=== PATIENT | female | born 1950 | race Caucasian/White ===

== ENCOUNTER → 2018-02-13 09:09 | Outpatient (CLI) | payer MEDICARE, OTHER, SELFPAY | PROVIDERS: Family Provider Family Medicine; PCP Family Medicine; Visit Provider Family Medicine | DX: R69 Illness, unspecified (principal) ==

== ENCOUNTER → 2018-02-20 08:27 | Outpatient (CLI) | payer MEDICARE, OTHER, SELFPAY ==
[2018-02-20 10:20] LABS: ALB/GLOB Ratio 1.2 RATIO (0.9-2.4); AST(SGOT) 80 U/L (15-37); Alanine Aminotransfer ALT/SGPT 97 U/L (13-56); Albumin, Serum 3.8 g/dL (3.2-5.0); Alkaline Phosphatase 88 U/L (45-117); Anion Gap 8 (5-15); BUN 12 mg/dL (7-18); BUN/Creat Ratio 17.1 RATIO (10-20); Calcium,Total 8.9 mg/dL (8.5-10.1); Chloride 106 mmol/L (98-107); Cholesterol 171 mg/dL (200); EST Glomerular Filtration Rate 88 mL/min (>60); Est Glom Filt Rate - Afr Amer 107 mL/min (>60); Globulin 3.1 g/dL (2.2-4.2); Glucose 151 mg/dL (74-106); High Density Lipoprotein 46 mg/dL; Potassium 4.2 mmol/L (3.5-5.1); Protein, Total 6.9 g/dL (6.4-8.2); Sodium Level 142 mmol/L (136-145); Thyroid Stim Hormone (TSH) 2.07 uIU/mL (0.358-3.74); Triglycerides 137 mg/dL; Very Low Density Lipoprotein 27 mg/dL (5-40)
[2018-02-21 09:03] LABS: Vitamin D,25 Hydroxy 61.1 ng/mL (29.95-100.01)
== END ==
PROVIDERS: Family Provider Family Medicine; PCP Family Medicine; Visit Provider Family Medicine
DX: E11.65 Type 2 diabetes mellitus with hyperglycemia (principal); E03.9 Hypothyroidism, unspecified; E55.9 Vitamin D deficiency, unspecified
CPT/HCPCS: 36415; 80053; 80061; 82306; 84443

== ENCOUNTER → 2018-05-21 09:25 | Outpatient (CLI) | payer MEDICARE, OTHER, SELFPAY ==
[2018-05-21 10:54] LABS: ALB/GLOB Ratio 1.1 RATIO (0.9-2.4); AST(SGOT) 55 U/L (15-37); Alanine Aminotransfer ALT/SGPT 71 U/L (13-56); Albumin, Serum 3.7 g/dL (3.2-5.0); Alkaline Phosphatase 75 U/L (45-117); Anion Gap 6 (5-15); BUN 15 mg/dL (7-18); Calcium,Total 9.2 mg/dL (8.5-10.1); Chloride 108 mmol/L (98-107); Creatinine, Serum 0.65 mg/dL (0.55-1.02); EST Glomerular Filtration Rate 96 mL/min (>60); Est Glom Filt Rate - Afr Amer 116 mL/min (>60); Globulin 3.3 g/dL (2.2-4.2); Glucose 115 mg/dL (74-106); Potassium 4.1 mmol/L (3.5-5.1); Sodium Level 140 mmol/L (136-145)
[2018-05-22 14:38] LABS: Hep C Antibodies 0.1 s/co ratio (0.0-0.9)
== END ==
PROVIDERS: Family Provider Family Medicine; PCP Family Medicine; Visit Provider Family Medicine
DX: R74.8 Abnormal levels of other serum enzymes (principal)
CPT/HCPCS: 36415; 80053; 86803

== ENCOUNTER → 2018-11-24 10:09 | Outpatient (CLI) | payer MEDICARE, OTHER, SELFPAY ==
[2018-11-24 13:20] LABS: ALB/GLOB Ratio 1.1 RATIO (0.9-2.4); AST(SGOT) 83 U/L (15-37); Alanine Aminotransfer ALT/SGPT 86 U/L (13-56); Albumin, Serum 3.7 g/dL (3.2-5.0); Alkaline Phosphatase 82 U/L (45-117); Anion Gap 11 (5-15); BUN 15 mg/dL (7-18); BUN/Creat Ratio 21.4 RATIO (10-20); Calcium,Total 8.8 mg/dL (8.5-10.1); Chloride 108 mmol/L (98-107); Cholesterol 181 mg/dL (200); EST Glomerular Filtration Rate 88 mL/min (>60); Est Glom Filt Rate - Afr Amer 107 mL/min (>60); Globulin 3.3 g/dL (2.2-4.2); Glucose 134 mg/dL (74-106); High Density Lipoprotein 45 mg/dL; Potassium 4.2 mmol/L (3.5-5.1); Sodium Level 138 mmol/L (136-145); T4 Free Direct 1.36 ng/dL (0.76-1.46); Thyroid Stim Hormone (TSH) 1.83 uIU/mL (0.358-3.74); Triglycerides 211 mg/dL; Very Low Density Lipoprotein 42 mg/dL (5-40)
== END ==
PROVIDERS: Family Provider Family Medicine; PCP Family Medicine; Visit Provider Family Medicine
DX: E11.65 Type 2 diabetes mellitus with hyperglycemia (principal); E03.9 Hypothyroidism, unspecified
CPT/HCPCS: 36415; 80053; 80061; 84439; 84443

== ENCOUNTER → 2018-11-25 14:54 | Outpatient (CLI) | payer MEDICARE, OTHER, SELFPAY ==
[2018-11-25 17:49] LABS: Vitamin D,25 Hydroxy 18.2 ng/mL (29.95-100.01)
== END ==
PROVIDERS: Family Provider Family Medicine; PCP Family Medicine; Visit Provider Family Medicine
DX: E55.9 Vitamin D deficiency, unspecified (principal)
CPT/HCPCS: 36415; 82306

== ENCOUNTER → 2018-11-26 13:38 | Outpatient (CLI) | payer MEDICARE, OTHER, SELFPAY ==
--- NOTE | 2018-11-26 13:43 | CDU_ITS ---
Reason For Study: RETINAL EMBOLI Rt. Velocities/BP Lt. Velocities/BP Prox CCA 111/17 cm/sec. Prox CCA 124/25 cm/sec. Mid CCA 70/19 cm/sec. Mid CCA 75/24 cm/sec. Dist CCA 80/24 cm/sec. Dist CCA 85/27 cm/sec. Prox ICA 37/13 cm/sec. Prox ICA 68/26 cm/sec. Mid ICA 50/19 cm/sec. Mid ICA 65/28 cm/sec. Dist ICA 59/28 cm/sec. Dist ICA 61/25 cm/sec. Rt. ICA/CCA = .84. Lt. ICA/CCA = .91. Prox ECA 87/16 cm/sec. Prox ECA 106/17 cm/sec. Rt. Vert. 42/13 cm/sec. Lt. Vert. 38/9 cm/sec. Right Extracranial There is homogeneous, smooth atherosclerotic plaque noted in the right common carotid artery. There is homogeneous, smooth atherosclerotic plaque noted in the right internal carotid artery. There is heterogeneous, irregular atherosclerotic plaque noted in the right external carotid artery. Antegrade flow is noted in the right vertebral artery. Left Extracranial There is homogeneous, smooth atherosclerotic plaque noted in the left common carotid artery. There is heterogeneous, smooth atherosclerotic plaque noted in the left internal carotid artery. There is heterogeneous, irregular atherosclerotic plaque noted in the left external carotid artery. Antegrade flow is noted in the left vertebral artery. Procedure Carotid Duplex [id number]. Exam performed in department. Interpretation Summary Mild (<50%) stenosis right extracranial internal carotid. Mild (<50%) stenosis left extracranial internal carotid. Flow within the vertebral arteries is antegrade bilaterally. Ordering Physician: Marques Gore Referring Physician: Marques Gore Performed By: Dinora Mckay, LETITIA, RVT
== END ==
PROVIDERS: Family Provider Family Medicine; PCP Family Medicine; Referring Provider Family Medicine; Visit Provider Family Medicine
DX: H34.9 Unspecified retinal vascular occlusion (principal)
CPT/HCPCS: 93880

== ENCOUNTER → 2018-12-24 12:31 | Outpatient (CLI) | payer MEDICARE, OTHER, SELFPAY ==
--- NOTE | 2018-12-24 12:33 | ECHOD_ITS ---
Reason For Study: Bilateral Retinal Emboli Procedure This was a 2D Doppler, Color Flow transthoracic echocardiogram. Exam performed in department. Left Ventricle Moderate concentric left ventricular hypertrophy. The estimated ejection fraction is 75 %. Stage 1 diastolic dysfunction. No regional wall motion abnormalities noted. Right Ventricle Normal size and thickness. Normal systolic function. Atria The left atrium is moderately enlarged. Normal right atrium. Normal atrial septum. Mitral Valve Mild diffuse mitral valve thickening. Severe mitral annular calcification extending into the posterior leaflet. Tricuspid Valve Normal tricuspid valve. Mild (1+) tricuspid valve insufficiency. Right ventricular systolic pressure estimated to be 32 mmHg. Aortic Valve Trisinus/trileaflet aortic valve. Aortic sclerosis, no stenosis. Pulmonic Valve Normal pulmonic valve. Great Vessels Normal aortic root. Normal arch. Normal inferior vena cava. Inferior vena cava collapse with sniff. MMode/2D Measurements & Calculations LVIDd: 3.5 cm IVSd: 1.5 cm Ao root diam: 3.5 cm LVIDs: 2.0 cm LVPWd: 1.3 cm RVDd: 3.3 cm FS: 44.7 % LAV(MOD-bp): 82.1 ml LA A4 area: 25.2 cm2 RA A4 area: 13.1 cm2 LAV(MOD-bp) Indexed: 43.5 ml/m2 LAV(MOD-sp2): 86.6 ml LAV(MOD-sp4): 78.4 ml Time Measurements MV dec time: 0.37 sec Doppler Measurements & Calculations MV E max kentrell: 97.1 cm/sec Lat Peak E' Kentrell: 3.8 cm/sec Med Peak E' Kentrell: 3.6 cm/sec MV A max kentrell: 126.2 cm/sec E/E' lat: 25.5 E/E' med: 26.9 MV E/A: 0.77 MV V2 max: 140.7 cm/sec MV P1/2t max kentrell: 107.0 cm/sec Ao V2 max: 125.3 cm/sec MV max P.9 mmHg MV P1/2t: 92.5 msec Ao max P.3 mmHg MV V2 mean: 72.5 cm/sec Ao V2 mean: 79.0 cm/sec MV mean P.5 mmHg MV dec slope: 339.0 cm/sec2 Ao mean P.9 mmHg MV V2 VTI: 45.3 cm MVA(P1/2t): 2.4 cm2 Ao V2 VTI: 27.2 cm LV V1 max: 106.2 cm/sec PA V2 max: 72.8 cm/sec TR max kentrell: 249.9 cm/sec LV V1 max P.5 mmHg TR max P.0 mmHg LV V1 mean P.7 mmHg LV V1 mean: 58.4 cm/sec LV V1 VTI: 21.9 cm Interpretation Summary Moderate concentric left ventricular hypertrophy. The estimated ejection fraction is 75 %. Stage 1 diastolic dysfunction. The left atrium is moderately enlarged. Mild (1+) tricuspid valve insufficiency. Right ventricular systolic pressure estimated to be 32 mmHg. No evidence of VSD. There is no comparison study available. Ordering Physician: Marques Gore Referring Physician: Marques Gore Performed By: Maicol Smith RCS
--- NOTE | 2018-12-24 13:35 | CT_ITS ---
STUDY: CTA NECK WITH CONTRAST REASON FOR EXAM: Female, 68 years old. Retinal emboli. RADIATION DOSAGE (If Supplied By Facility): CTDIvol = ( 20.41 ) mGy, DLP = ( 485.39 ) mGycm TECHNIQUE: CT angiography with multi-detector data acquisition was performed from the aortic arch to the skull base following intravenous administration of Isovue 370 100 IV. MIP images were reconstructed from the axial data set. Post-processing of the angiographic images was performed, with multiplanar reformation and 3D reconstruction. Individualized dose optimization techniques were used for this CT. COMPARISON: Ultrasound carotid duplex 11/26/2018. FINDINGS: Apical lungs exhibit mild chronic interstitial changes with no acute process. Superior mediastinal contents unremarkable. Apical thoracic body wall soft tissues and osseous structures exhibit no acute abnormality. Multinodular heterogeneity of the thyroid gland bilaterally, numerous small nodules. Likely goitrous changes. Clinically correlate. No supraclavicular mass or lymphadenopathy. No cervical mass or lymphadenopathy. Pharyngeal and laryngeal soft tissues exhibit no acute process. There is prominent multilevel cervical degenerative disc disease between C3 and C7 most prominent at C5-C7 with uncovertebral joint hypertrophy and facet hypertrophy contributing to multilevel mild to moderate foraminal narrowing. Foraminal narrowing most notable bilaterally at C5-C6, on the left at C6-C7. Prominently comparison thickening and fluid level within the left maxillary sinus. Minimal mucoperiosteal thickening of right sphenoid and posterior ethmoids. Mastoid air cells and middle ear cavities clear. Nondilated aortic arch, widely patent bovine cervical arch branching, no atherosclerosis. Normal subclavian arteries. Right carotid artery minimal plaque of the bulb, no stenosis or dissection. Left carotid artery minimal plaque of the bulb and proximal ICA without stenosis or dissection. Bilateral cervical and intracranial vertebral arteries normal. Normal appearance of the basilar artery and posterior cerebral arteries. Normal appearance of the pauma of Alvarez. Normal enhancement of the bilateral ophthalmic arteries. Normal appearance of the evaluated portions of the middle and anterior cerebral arteries. Normal appearance of the evaluated portions of the dural venous sinuses and major venous tributaries. CT/CTA Neck W/WO Contrast IMPRESSION: There is no evidence of retinal artery occlusion. Each enhances normally. Minimal atherosclerosis of the carotid bulbs and bifurcations without stenosis or dissection. Paranasal sinus disease. Multilevel cervical spondylosis. Heterogeneous multinodular thyroid gland likely reflecting goiter. Clinically correlate. Electronically Signed: Félix Bray MD at 15:57 EDT Tel , Service support ,
== END ==
PROVIDERS: Family Provider Family Medicine; PCP Family Medicine; Referring Provider Family Medicine; Visit Provider Family Medicine
DX: Z86.73 Personal history of transient ischemic attack (TIA), and cerebral infarction without residual deficits (principal); H34.9 Unspecified retinal vascular occlusion
CPT/HCPCS: 70498; 93306; Q9967

== ENCOUNTER → 2019-02-26 08:34 | Outpatient (CLI) | payer MEDICARE, OTHER, SELFPAY ==
[2019-02-26 10:20] LABS: ALB/GLOB Ratio 1.1 RATIO (0.9-2.4); AST(SGOT) 62 U/L (15-37); Alanine Aminotransfer ALT/SGPT 78 U/L (13-56); Albumin, Serum 3.9 g/dL (3.2-5.0); Alkaline Phosphatase 92 U/L (45-117); Anion Gap 7 (5-15); BUN 17 mg/dL (7-18); BUN/Creat Ratio 21.2 RATIO (10-20); Calcium,Total 9.2 mg/dL (8.5-10.1); Chloride 105 mmol/L (98-107); EST Glomerular Filtration Rate 76 mL/min (>60); Est Glom Filt Rate - Afr Amer 91 mL/min (>60); Globulin 3.5 g/dL (2.2-4.2); Glucose 124 mg/dL (74-106); Potassium 4.2 mmol/L (3.5-5.1); Protein, Total 7.4 g/dL (6.4-8.2); Sodium Level 139 mmol/L (136-145); Vitamin D,25 Hydroxy 50.8 ng/mL (29.95-100.01)
== END ==
PROVIDERS: Family Provider Family Medicine; PCP Family Medicine; Referring Provider Family Medicine; Visit Provider Family Medicine
DX: E55.9 Vitamin D deficiency, unspecified (principal); R74.8 Abnormal levels of other serum enzymes
CPT/HCPCS: 36415; 80053; 82306

== ENCOUNTER → 2019-11-16 08:32 | Outpatient (CLI) | payer MEDICARE, OTHER, SELFPAY ==
[2019-11-16 10:43] LABS: ALB/GLOB Ratio 1.1 RATIO (0.9-2.4); AST(SGOT) 85 U/L (15-37); Alanine Aminotransfer ALT/SGPT 101 U/L (13-56); Albumin, Serum 3.8 g/dL (3.2-5.0); Alkaline Phosphatase 91 U/L (45-117); Anion Gap 4 (5-15); BUN 13 mg/dL (7-18); BUN/Creat Ratio 18.5 RATIO (10-20); Calcium,Total 9.1 mg/dL (8.5-10.1); Chloride 105 mmol/L (98-107); EST Glomerular Filtration Rate 88 mL/min (>60); Est Glom Filt Rate - Afr Amer 107 mL/min (>60); Globulin 3.4 g/dL (2.2-4.2); Glucose 166 mg/dL (74-106); Potassium 4.1 mmol/L (3.5-5.1); Protein, Total 7.2 g/dL (6.4-8.2); Sodium Level 138 mmol/L (136-145); Thyroid Stim Hormone (TSH) 2.49 uIU/mL (0.358-3.74)
== END ==
PROVIDERS: PCP Family Medicine; Referring Provider Family Medicine; Visit Provider Family Medicine
DX: E03.9 Hypothyroidism, unspecified (principal); E55.9 Vitamin D deficiency, unspecified; E11.65 Type 2 diabetes mellitus with hyperglycemia
CPT/HCPCS: 36415; 80053; 82306; 84443

== ENCOUNTER → 2019-11-25 07:37 | Outpatient (CLI) | payer MEDICARE, OTHER, SELFPAY ==
--- NOTE | 2019-11-25 07:40 | US_ITS ---
STUDY: ABDOMINAL ULTRASOUND REASON FOR EXAM: Female, 69 years old. ELEVATED LIVER ENZYMES -- HX OF CHOLECYSTECTOMY 30 YEARS AGO TECHNIQUE: Transabdominal ultrasound was performed with real-time and static de la paz scale imaging. TECHNICAL QUALITY: Adequate. COMPARISON: None. FINDINGS: Liver: The liver is slightly enlarged and measures 18.1 cm. There is increased echogenicity consistent with fatty infiltration. The bile ducts are within normal limits. There is hepatic color flow. The direction of portal flow is hepatopetal. There is no demonstrated mass lesion. Portal vein measurement: Gallbladder: The patient is status post cholecystectomy. Common Bile Duct (C.B.D.): The common bile duct measures 7.4 mm. Pancreas: Normal size of the head, body and tail of the pancreas. There is increased echogenicity of the pancreas. There is no demonstrated pancreatic mass or cyst. Spleen: There is splenomegaly. The spleen measures 14 cm x 4.8 cm x 5.1 cm. Right Kidney: Normal size of the right kidney. The right kidney measures 11.7 cm x 6.1 cm x 5.5 cm. Normal renal cortex. The right cortex measures 1.1 cm. There is no demonstrated renal mass or cyst. There is no right hydronephrosis. Left Kidney: Normal size of the left kidney. The left kidney measures 11.7 cm x 5.7 cm x 5.8 cm. Normal renal cortex. The left cortex measures 1.5 cm. There is no demonstrated renal mass or cyst. There is no left hydronephrosis. Aorta: Unremarkable I.V.C.: The IVC is patent. There is no ascites. US/Abdomen Complete IMPRESSION: Mild hepatomegaly with diffuse fatty infiltration. Splenomegaly. The patient is status post cholecystectomy. Electronically Signed: Wes Jeffrey, at 14:02 EST , Service support ,
== END ==
PROVIDERS: PCP Family Medicine; Referring Provider Family Medicine; Visit Provider Family Medicine
DX: R94.5 Abnormal results of liver function studies (principal)
CPT/HCPCS: 76700

== ENCOUNTER → 2019-11-27 08:01 | Outpatient (CLI) | payer MEDICARE, OTHER, SELFPAY ==
[2019-11-27 10:20] LABS: Mean Corpuscular Hgb 31.7 pg (27.0-32.0); Mean Corpuscular Volume 93.3 fL (81-99); Mean Platelet Vol. 13.5 fl (6.2-12.0); Platelet Count 121 K/mm3 (150-450); RBC Distribution Width CV 12.5 % (11.6-14.6); RBC Distribution Width SD 42.5 fl (35.1-43.9); Red Blood Count 5.04 M/mm3 (4.2-5.4); White Blood Count 6.9 K/mm3 (4.4-11.0)
[2019-11-27 10:43] LABS: Cholesterol 209 mg/dL (200); Ferritin 351 ng/mL (8-252); GGTP 241 U/L (5-55); High Density Lipoprotein 50 mg/dL; Iron 153 ug/dL (50-170); Triglycerides 241 mg/dL; Very Low Density Lipoprotein 48 mg/dL (5-40)
[2019-11-27 11:01] LABS: Hepatitis B Surface Antibody Non-Reactive; Hepatitis B Surface Antigen Non-Reactive (Nonreactive)
[2019-11-30 14:56] LABS: Iron Binding Capacity,Total 305 ug/dL (250-450)
[2019-12-01 09:43] LABS: Vitamin D,25 Hydroxy 69.2 ng/mL
[2019-12-03 11:05] LABS: Transferrin 235 mg/dL (200-370)
== END ==
PROVIDERS: PCP Family Medicine; Referring Provider Family Medicine; Visit Provider Family Medicine
DX: E55.9 Vitamin D deficiency, unspecified (principal); E11.65 Type 2 diabetes mellitus with hyperglycemia; R94.5 Abnormal results of liver function studies; E61.1 Iron deficiency
CPT/HCPCS: 36415; 80061; 81291; 82306; 82728; 82977; 83540; 83550; 84466; 85027; 86706; 87340

== ENCOUNTER 2020-03-15 05:19 | Day surgery (SDC) | payer MEDICARE, OTHER, SELFPAY ==
[2020-03-03 07:37] VITALS: BMI 33.8
--- NOTE | 2020-03-03 07:55 | HP_ITS ---
Intake Vital Signs 03/03/20 Height 5 ft 2 in 03/03/20 Weight: 185 lb 03/03/20 BP 124/80 H 03/03/20 Blood Pressure Location Rt brachial 03/03/20 Position Sitting 03/03/20 Respiration 16 03/03/20 Pulse 67 03/03/20 Pulse Source Monitor 03/03/20 Temp 98.0 F 03/03/20 Temp Source Temporal 03/03/20 Pulse Oximetry (%) 95 03/03/20 Oxygen Delivery Method room air Intake Visit Reasons: C-Scope/Rectal Bleeding Supervisor Mail Carriers Required: No Is patient in pain?: No Allergies atorvastatin Allergy (Unknown, Verified 03/03/20 07:38) Unknown Sulfa (Sulfonamide Antibiotics) Allergy (Unknown, Verified 03/03/20 07:38) Unknown Medications aspirin 81 mg tablet,delayed release 81 mg PO DAILY 03/03/20 [History Confirmed 03/03/20] canagliflozin 300 mg tablet 300 mg PO DAILY tab 03/03/20 [History Confirmed 03/03/20] cholecalciferol (vitamin D3) 1,250 mcg (50,000 unit) capsule 50,000 unit PO QWEEK cap 03/03/20 [History Confirmed 03/03/20] glimepiride 4 mg tablet 4 mg PO DAILY tab 03/03/20 [History Confirmed 03/03/20] levothyroxine 100 mcg tablet 100 mcg PO DAILY tab 03/03/20 [History Confirmed 03/03/20] metformin 1,000 mg tablet 1,000 mg PO BID tab 03/03/20 [History Confirmed 03/03/20] [facility] Medical History (Updated 03/03/20 @ 07:[address] Shahab Velazquez MD) Anal stenosis (Acute) Rectal bleeding (Acute) Arthritis (Acute) Blood in stool (Acute) Diabetes (Acute) Diarrhea (Acute) Hemorrhoids (Acute) Suspected sleep apnea (Acute) Thyroid disease (Acute) Surgical History (Updated 03/03/20 @ 07:32 by Linda Schmitt) Hx of colonoscopy (Acute) Hx of cholecystectomy (Acute) Family History (Updated 03/03/20 @ 07:36 by Linda Schmitt) Mother Arthritis Heart disease Diabetes Hypertension High cholesterol Thyroid disorder Father Bone cancer Diabetes Hypertension High cholesterol Cancer skin cancer Sister Thyroid disorder Daughter Lupus Social History (Updated 03/03/20 @ 07:[address] Shahab Velazquez MD) Smoking Status: Former smoker alcohol intake: never substance use type: does not use caffeine: Yes what type of physical activity do you participate in: walking frequency: 3-4 times per week seatbelt use: always HPI HPI HPI: CESAR SHELTON, is a 69 F who presents to the office today for HPI HPI Surgical H&P: Yes HPI: CESAR SHELTON, is a 69 F who presents to the office today for surgical consultation regarding rectal bleeding. The patient is referred by her primary Dr. Marques Gore and Written Copy My Surgical Consult Recommendations Will Return to Him. Over a 1 Week Period of Time the Patient Had Intermittent Rectal Bleeding. Blood on the Tissue and in the Stool. She Has Some Local Irritation. The Symptoms Seem Similar to November 2009 Where I Did a Colonoscopy for Her. She Had Anal Stenosis Identified at That Time Internal and External Hemorrhoids. She Apparently Has Been Otherwise Well in That Time Period. She States That Her Father Had a History of Colon Polyps. She Is Not Recognizing Any Family History of Colon Cancer. Now on Routine Laboratory Obtained November 17, 2019 Her Hemoglobin Level Was Elevated at 16 Hematocrit of 47 and a Platelet Count Low at 121,000. 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 Cholesterol Is 209 and Triglyceride 241. GGTP Was 241. Iron Was 153. Hepatitis B Surface Antigen Negative. Hepatitis B Surface Antibody Negative. TIBC 305. Transferrin Was 235. 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 Ferritin Was 351 Abnormally High. On November 25, 2019 at the [facility] a Ultrasound Was Obtained of the Abdomen and It Was Abnormal. The Liver Was Slightly Enlarged Measuring 18.1 Cm with Increased Echogenicity Consistent with Fatty Infiltration. The Spleen Was Enlarged Measuring 14 x 4.8 x 5.1 Cm. Evidence of Previous Cholecystectomy. The Patient States That She Has Additional Follow-Up Scheduled with Dr. Marques Durán. The Patient States That She Has Had Some Vaginal Irritation Which She Tried Vinegar Irrigation. That Has Improved but Not Resolve the Issue. ROS General General: No weight change, appetite, fatigue, colon cancer, breast cancer or weakness HEENT HEENT: No difficulty swallowing, eye injury, eye surgery, swollen glands or hoarseness Endo Endocrine: Yes thyroid disease and diabetes mellitus; no thyroid cancer, Hair loss, heat intolerance or cold intolerance Skin Skin: No rash or changing moles Musc Musculoskeletal: Yes arthritis; no back problems, rheumatoid arthritis, gout or joint pain Cardio Cardiovascular: No murmur, pacemaker, heart disease, atrial fibrillation, high blood pressure, heart attack, heart stent, palpitations, shortness of breat with exertion or chest pain Psych Psychiatric: No depression, anxiety or hearing voices Resp Respiratory: No shortness of breath, Yes sleep apnea, No cough, No COPD, No asthma, No emphysema, No wheezing Gastro Gastrointestinal: No abdominal pain, No nausea or vomiting, Yes diarrhea, No constipation, Yes blood in stool, No acid reflux, No hemorrhoids, No ulcers, No gallbladder problem, No black,tarry stools Addy Hematologic: Yes blood thinners, No blood disorders, No bleeding, No anemia, No blood clots Neuro Neurologic: No system reviewed and no additional complaints, except as docu, No as per HPI, No abnormal walking, No abnormal hearing, No abnormal movements, No abnormal speech, No behavioral changes, No burning sensations, No confusion, No seizure-like activity, No unsteadiness, No dizziness, No localized weakness, No frequent falls, No headache(s), No lack of coordination, No loss of vision, No memory loss, No numbness, No other visual disturbances, No radiating pain, No restless legs, No sensory deficit, No fainting, No tingling, No tremor(s), No weakness, No other Exam Const General: cooperative, healthy appearing, comfortable, no acute distress Nutritional Appearance: obese Orientation: alert, awake, oriented x3 HENMT Head: normal to inspection Resp Effort & Inspection: normal respiratory effort Auscultation: clear to auscultation bilaterally Cardio Rate: regular rate Rhythm: regular rhythm Heart Sounds: no murmurs Other: Carotids are 3+ bilateral no bruits. Bilateral radials and brachials are 3+ GI Palpation: soft, no hepatosplenomegaly Auscultation: normal bowel sounds Musc Cervical Spine: normal cervical lordosis Neuro Cognition: normal cognition Extrem General: no calf tenderness Psych Affect: normal affect Assessment & Plan Problems 1. Rectal bleeding K62.5 2. Anal stenosis K62.4 Plan Regarding the patient's concern of anal irritation and anal bleeding I do recommend a colonoscopy with possible biopsy or polypectomy as indicated. I have explained the technique, benefit, risk and alternatives. She has had an opportunity to ask and have questions answered. She is aware that this is occurring during the time of the Covid-19 pandemic. She is aware that the [facility] suggest a low local incidence. She is aware of the increased risk. Regarding the patient's abnormal hemoglobin and platelet count and liver and spleen imaging. She will continue to follow-up with Dr. Marques Gore. She has had an opportunity to ask and have questions answered. I very much appreciate the ongoing opportunity of assisting with surgical care. We will schedule and proceed at her discretion. CC: Dr. Marques Velazquez M.D., F.A.C.S. Coding Level of Care Code 01325 Diagnoses Rectal bleeding K62.5 Anal stenosis K62.4 03/03/20 0755 <Electronically signed by Shahab hartley MD> Date _ Shahab Velazquez MD
[2020-03-15 05:39] VITALS: BP 118/64; PULSE 73; RESP 16; TEMP 37.2; O2SAT 96; BMI 34.7
--- NOTE | 2020-03-15 05:56 | HP.PCM_ITS ---
Problem List (1) Rectal bleeding Status: Acute History and Physical Date of Admission: 03/15/20 Intake Visit Reasons: C-Scope/Rectal Bleeding Yarn Conditioner Required: No Is patient in pain?: No Allergies atorvastatin Allergy (Unknown, Verified 03/03/20 07:38) Unknown Sulfa (Sulfonamide Antibiotics) Allergy (Unknown, Verified 03/03/20 07:38) Unknown Medications aspirin 81 mg tablet,delayed release 81 mg PO DAILY 03/03/20 [History Confirmed 03/03/20] canagliflozin 300 mg tablet 300 mg PO DAILY tab 03/03/20 [History Confirmed 03/03/20] cholecalciferol (vitamin D3) 1,250 mcg (50,000 unit) capsule 50,000 unit PO QWEEK cap 03/03/20 [History Confirmed 03/03/20] glimepiride 4 mg tablet 4 mg PO DAILY tab 03/03/20 [History Confirmed 03/03/20] levothyroxine 100 mcg tablet 100 mcg PO DAILY tab 03/03/20 [History Confirmed 03/03/20] metformin 1,000 mg tablet 1,000 mg PO BID tab 03/03/20 [History Confirmed 03/03/20] PFS Medical History (Updated 03/03/20 @ 07:[address] Shahab Velazquez MD) Anal stenosis (Acute) Rectal bleeding (Acute) Arthritis (Acute) Blood in stool (Acute) Diabetes (Acute) Diarrhea (Acute) Hemorrhoids (Acute) Suspected sleep apnea (Acute) Thyroid disease (Acute) Surgical History (Updated 03/03/20 @ 07:32 by Linda Schmitt) Hx of colonoscopy (Acute) Hx of cholecystectomy (Acute) Family History (Updated 03/03/20 @ 07:36 by Linda Schmitt) Mother Arthritis Heart disease Diabetes Hypertension High cholesterol Thyroid disorder Father Bone cancer Diabetes Hypertension High cholesterol Cancer skin cancer Sister Thyroid disorder Daughter Lupus Social History (Updated 03/03/20 @ 07:[address] Shahab Velazquez MD) Smoking Status: Former smoker alcohol intake: never substance use type: does not use caffeine: Yes what type of physical activity do you participate in: walking frequency: 3-4 times per week seatbelt use: always HPI HPI HPI: CESAR SHELTON, is a 69 F who presents to the office today for HPI HPI Surgical H&P: Yes HPI: CESAR SHELTON, is a 69 F who presents to the office today for surgical consultation regarding rectal bleeding. The patient is referred by her primary Dr. Marques Gore and Written Copy My Surgical Consult Recommendations Will Return to Him. Over a 1 Week Period of Time the Patient Had Intermittent Rectal Bleeding. Blood on the Tissue and in the Stool. She Has Some Local Irritation. The Symptoms Seem Similar to November 2009 Where I Did a Colonoscopy for Her. She Had Anal Stenosis Identified at That Time Internal and External Hemorrhoids. She Apparently Has Been Otherwise Well in That Time Period. She States That Her Father Had a History of Colon Polyps. She Is Not Recognizing Any Family History of Colon Cancer. Now on Routine Laboratory Obtained November 17, 2019 Her Hemoglobin Level Was Elevated at 16 Hematocrit of 47 and a Platelet Count Low at 121,000. 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 Cholesterol Is 209 and Triglyceride 241. GGTP Was 241. Iron Was 153. Hepatitis B Surface Antigen Negative. Hepatitis B Surface Antibody Negative. TIBC 305. Transferrin Was 235. 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 Ferritin Was 351 Abnormally High. On November 25, 2019 at the [facility] a Ultrasound Was Obtained of the Abdomen and It Was Abnormal. The Liver Was Slightly Enlarged Measuring 18.1 Cm with Increased Echogenicity Consistent with Fatty Infiltration. The Spleen Was Enlarged Measuring 14 x 4.8 x 5.1 Cm. Evidence of Previous Cholecystectomy. The Patient States That She Has Additional Follow-Up Scheduled with Dr. Marques Durán. The Patient States That She Has Had Some Vaginal Irritation Which She Tried Vinegar Irrigation. That Has Improved but Not Resolve the Issue. ROS General General: No weight change, appetite, fatigue, colon cancer, breast cancer or weakness HEENT HEENT: No difficulty swallowing, eye injury, eye surgery, swollen glands or hoarseness Endo Endocrine: Yes thyroid disease and diabetes mellitus; no thyroid cancer, Hair loss, heat intolerance or cold intolerance Skin Skin: No rash or changing moles Musc Musculoskeletal: Yes arthritis; no back problems, rheumatoid arthritis, gout or joint pain Cardio Cardiovascular: No murmur, pacemaker, heart disease, atrial fibrillation, high blood pressure, heart attack, heart stent, palpitations, shortness of breat with exertion or chest pain Psych Psychiatric: No depression, anxiety or hearing voices Resp Respiratory: No shortness of breath, Yes sleep apnea, No cough, No COPD, No asthma, No emphysema, No wheezing Gastro Gastrointestinal: No abdominal pain, No nausea or vomiting, Yes diarrhea, No co nstipation, Yes blood in stool, No acid reflux, No hemorrhoids, No ulcers, No gallbladder problem, No black,tarry stools Addy Hematologic: Yes blood thinners, No blood disorders, No bleeding, No anemia, No blood clots Neuro Neurologic: No system reviewed and no additional complaints, except as docu, No as per HPI, No abnormal walking, No abnormal hearing, No abnormal movements, No abnormal speech, No behavioral changes, No burning sensations, No confusion, No seizure-like activity, No unsteadiness, No dizziness, No localized weakness, No frequent falls, No headache(s), No lack of coordination, No loss of vision, No memory loss, No numbness, No other visual disturbances, No radiating pain, No restless legs, No sensory deficit, No fainting, No tingling, No tremor(s), No weakness, No other Exam Const General: cooperative, healthy appearing, comfortable, no acute distress Nutritional Appearance: obese Orientation: alert, awake, oriented x3 HENMT Head: normal to inspection Resp Effort & Inspection: normal respiratory effort Auscultation: clear to auscultation bilaterally Cardio Rate: regular rate Rhythm: regular rhythm Heart Sounds: no murmurs Other: Carotids are 3+ bilateral no bruits. Bilateral radials and brachials are 3+ GI Palpation: soft, no hepatosplenomegaly Auscultation: normal bowel sounds Musc Cervical Spine: normal cervical lordosis Neuro Cognition: normal cognition Extrem General: no calf tenderness Psych Affect: normal affect Assessment & Plan Problems 1. Rectal bleeding K62.5 2. Anal stenosis K62.4 Plan Regarding the patient's concern of anal irritation and anal bleeding I do recommend a colonoscopy with possible biopsy or polypectomy as indicated. I have explained the technique, benefit, risk and alternatives. She has had an opportunity to ask and have questions answered. She is aware that this is occurring during the time of the Covid-19 pandemic. She is aware that the [facility] suggest a low local incidence. She is aware of the increased risk. Regarding the patient's abnormal hemoglobin and platelet count and liver and spleen imaging. She will continue to follow-up with Dr. Marques Gore. She has had an opportunity to ask and have questions answered. I very much appreciate the ongoing opportunity of assisting with surgical care. We will schedule and proceed at her discretion. CC: Dr. Marques Velazquez M.D., F.A.C.S. Coding Level of Care Code 56444 Diagnoses Rectal bleeding K62.5 Anal stenosis K62.4 03/03/20 0755 <Electronically signed by Shahab hartley MD> Date _ Shahab Velazquez MD I have re-examined the patient. There are no clinical changes since date of e xam. Procedure Criteria Procedure Type: Elective COVID Risk Discussion: The surgeon/proceduralist and patient have discussed in detail the risk of exposure to and/or potential harm posed by the COVID-19 virus with having a surgery/procedure at this time versus the risk of delaying the surgery/procedure. It is not possible to know either the risk of delaying the surgery or procedure or chance of getting an infection with perfect accuracy, but a joint decision was made between the patient and the surgeon/proceduralist to proceed at this time with the scheduled surgery/procedure as indicated on the consent form.
[2020-03-15] MEDS: Lactated Ringers 1,000 ML 75 ML IV (06:03)
[2020-03-15 06:55] VITALS: BP 104/63; BP 118/64; PULSE 66; RESP 18; TEMP 36.3; O2SAT 97
--- NOTE | 2020-03-15 06:58 | OP.COLON_ITS ---
Patient Name: Erna Driscoll Procedure Date: 03/15/2020 5:44 AM Date of : 1950 Age: 69 Procedure: Colonoscopy Indications: Rectal bleeding Providers: Shahab Velazquez MD Medicines: See the Anesthesia note for documentation of the administered medications Patient Profile: Last Colonoscopy: November 2009. Complications: No immediate complications. Procedure: Pre-Anesthesia Assessment: - Prior to the procedure, a History and Physical was performed, and patient medications and allergies were reviewed. The patient's tolerance of previous anesthesia was also reviewed. The risks and benefits of the procedure and the sedation options and risks were discussed with the patient. All questions were answered, and informed consent was obtained. Prior Anticoagulants: The patient has taken no previous anticoagulant or antiplatelet agents. ASA Grade Assessment: II - A patient with mild systemic disease. After reviewing the risks and benefits, the patient was deemed in satisfactory condition to undergo the procedure. After I obtained informed consent, the scope was passed under direct vision. Throughout the procedure, the patient's blood pressure, pulse, and oxygen saturations were monitored continuously. The colonoscope was introduced through the anus and advanced to the cecum, identified by appendiceal orifice and ileocecal valve. The colonoscopy was performed without difficulty. The patient tolerated the procedure well. The quality of the bowel preparation was adequate to identify polyps. The ileocecal valve and the appendiceal orifice were photographed. Scope In: 6:31:14 AM Scope Withdrawal Time 0 hours 9 minutes 56 seconds Scope Out: 6:49:25 AM Total Procedure Duration Time 0 hours 18 minutes 11 seconds Findings: The digital rectal exam findings include anal stricture, non-thrombosed external hemorrhoids, non-thrombosed internal hemorrhoids and internal hemorrhoids that prolapse with straining, but spontaneously regress to the resting position (Grade II). The colon (entire examined portion) was moderately tortuous. Advancing the scope required using manual pressure. Scattered diverticula were found in the sigmoid colon. Impression: - Anal stricture, non-thrombosed external hemorrhoids, non-thrombosed internal hemorrhoids and internal hemorrhoids that prolapse with straining, but spontaneously regress to the resting position (Grade II) found on digital rectal exam. - Tortuous colon. - Diverticulosis in the sigmoid colon. - No specimens collected. Internal hemorrhoids demonstrated oozing with manipulation//anal stenosis noted allowing just digital examination Recommendation: - Discharge patient to home. - Resume previous diet. - Continue present medications. - Repeat colonoscopy is not recommended due to current age (66 years or older) for screening purposes. If bleeding persists, consider colorectal referral b/o anal stenosis Procedure Code(s): --- Professional --- 13072, Colonoscopy, flexible; diagnostic, including collection of specimen(s) by brushing or washing, when performed (separate procedure) Diagnosis Code(s): --- Professional --- K62.4, Stenosis of anus and rectum K64.1, Second degree hemorrhoids K64.4, Residual hemorrhoidal skin tags K62.5, Hemorrhage of anus and rectum K57.30, Diverticulosis of large intestine without perforation or abscess without bleeding Q43.8, Other specified congenital malformations of intestine CPT copyright 2017 [employer]. All rights reserved. The codes documented in this report are preliminary and upon clinical coder review may be revised to meet current compliance requirements. Shahab Velazquez MD 03/15/2020 6:58:09 AM This report has been signed electronically. Number of Addenda: 0 Note Initiated On: 03/15/2020 5:44 AM
--- NOTE | 2020-03-15 06:58 | OP.CCLET_ITS ---
03/15/2020 Maikel Gore [address] [place] [address] Re : Colonoscopy procedure for Erna Americo Dear Dr. Gore This procedure was performed on Sunday, March 15, 2020. My impressions and recommendations are as follows: Impressions : - Anal stricture, non-thrombosed external hemorrhoids, non-thrombosed internal hemorrhoids and internal hemorrhoids that prolapse with straining, but spontaneously regress to the resting position (Grade II) found on digital rectal exam. - Tortuous colon. - Diverticulosis in the sigmoid colon. - No specimens collected. Internal hemorrhoids demonstrated oozing with manipulation//anal stenosis noted allowing just digital examination Recommendations : - Discharge patient to home. - Resume previous diet. - Continue present medications. - Repeat colonoscopy is not recommended due to current age (66 years or older) for screening purposes. If bleeding persists, consider colorectal referral b/o anal stenosis My findings are described in the full procedure note, which is enclosed. If I can be of further assistance, please feel free to contact me at Doctor phone number(s): Work: . Sincerely, Shahab Velazquez MD 03/15/2020 6:58:09 AM This report has been signed electronically.
[2020-03-15 07:00] VITALS: BP 113/68; BP 118/64; PULSE 65; RESP 18; O2SAT 97
[2020-03-15 07:05] VITALS: BP 114/69; BP 118/64; PULSE 64; RESP 18; O2SAT 96
[2020-03-15 07:10] VITALS: BP 116/68; BP 118/64; PULSE 64; RESP 18; TEMP 36.2; O2SAT 96
[2020-03-15 07:21] VITALS: BP 118/64
== END 2020-03-15 07:36 | disposition home or self-care (01) ==
LOC: EN 05:21 → AC 05:21
PROVIDERS: Physician Assistant; PCP Family Medicine; Referring Provider Family Medicine; Visit Provider Surgery
PROC: 0DJD8ZZ Inspection of Lower Intestinal Tract, Via Natural or Artificial Opening Endoscopic (ICD-10-PCS; CPT 45378; principal; 2020-03-15 06:25)
DX: K62.5 Hemorrhage of anus and rectum (principal); K62.4 Stenosis of anus and rectum; K64.1 Second degree hemorrhoids; K64.4 Residual hemorrhoidal skin tags; K57.30 Diverticulosis of large intestine without perforation or abscess without bleeding; Q43.8 Other specified congenital malformations of intestine; E06.9 Thyroiditis, unspecified; E11.9 Type 2 diabetes mellitus without complications; Z79.82 Long term (current) use of aspirin; Z79.84 Long term (current) use of oral hypoglycemic drugs; Z87.891 Personal history of nicotine dependence; Z11.59 Encounter for screening for other viral diseases
CPT/HCPCS: G0121; 87635; G2023; J7120; J2405; U0003

== ENCOUNTER → 2020-05-19 08:53 | Outpatient (CLI) | payer MEDICARE, OTHER, SELFPAY ==
[2020-05-19 10:38] LABS: ALB/GLOB Ratio 1.3 RATIO (0.9-2.4); AST(SGOT) 71 U/L (15-37); Alanine Aminotransfer ALT/SGPT 76 U/L (13-56); Albumin, Serum 3.7 g/dL (3.2-5.0); Alkaline Phosphatase 86 U/L (45-117); Anion Gap 5 (5-15); BUN 16 mg/dL (7-18); BUN/Creat Ratio 23.6 RATIO (10-20); Chloride 107 mmol/L (98-107); Cholesterol 193 mg/dL (200); Creatinine, Serum 0.68 mg/dL (0.55-1.02); EST Glomerular Filtration Rate 91 mL/min (>60); Est Glom Filt Rate - Afr Amer 110 mL/min (>60); Globulin 2.9 g/dL (2.2-4.2); Glucose 134 mg/dL (74-106); High Density Lipoprotein 44 mg/dL; Potassium 4.4 mmol/L (3.5-5.1); Protein, Total 6.6 g/dL (6.4-8.2); Sodium Level 139 mmol/L (136-145); Thyroid Stim Hormone (TSH) 2.49 uIU/mL (0.358-3.74); Triglycerides 268 mg/dL; Very Low Density Lipoprotein 54 mg/dL (5-40)
== END ==
PROVIDERS: PCP Family Medicine; Referring Provider Family Medicine; Visit Provider Family Medicine
DX: E11.65 Type 2 diabetes mellitus with hyperglycemia (principal); E03.9 Hypothyroidism, unspecified
CPT/HCPCS: 36415; 80053; 80061; 84443

== ENCOUNTER → 2020-05-26 11:02 | Outpatient (CLI) | payer MEDICARE, OTHER, SELFPAY ==
--- NOTE | 2020-05-26 11:06 | ART_ITS ---
Reason For Study: leg pain, I73.89 Procedure A bilateral lower extremity continuous wave Doppler with analog waveform analysis and ankle brachial indexes. Left Segmental Pressures Left brachial= 142mmHg. Left posterior tibial artery = 161mmHg. Left dorsalis pedis artery = 158mmHg. Left digit = 137 mmHg. The left dorsalis pedis waveforms are triphasic. The left posterior tibial artery waveforms are triphasic. Right Segmental Pressures Right brachial= 136mmHg. Right posterior tibial artery = 162mmHg. Right dorsalis pedis artery = 163mmHg. Right digit = 138 mmHg. The right dorsalis pedis waveforms are triphasic. The right posterior tibial artery waveforms are triphasic. Indices The right ankle brachial index by the dorsalis pedis is 1.15. The right ankle brachial index by the posterior tibial artery is 1.14. The right digital-brachial index is .97. The right ankle brachial index by the dorsalis pedis post exercise is 1.24. The left ankle brachial index by the posterior tibial artery is 1.13. The left ankle brachial index by the dorsalis pedis is 1.11. The left digital-brachial index is .96. The left posterior tibial artery index post exercise is 1.19. Interpretation Summary Triphasic Doppler waveforms are noted at ankle level bilaterally. Pulse-volume recordings appear satisfactory at ankle and digital levels bilaterally. Resting ankle-brachial indices are normal bilaterally. Digital-brachial indices are normal bilaterally. The patient was ambulated for 3 minutes at a moderate pace, following which ankle pressures augmented bilaterally, which is a normal physiological response. There is no evidence of significant arterial occlusive disease in the lower extremities bilaterally. Ordering Physician: Maikel Gore Performed By: MARU MOSELEY RVT
== END ==
PROVIDERS: PCP Family Medicine; Referring Provider Family Medicine; Visit Provider Family Medicine
DX: I73.89 Other specified peripheral vascular diseases (principal); M79.606 Pain in leg, unspecified
CPT/HCPCS: 93922

== ENCOUNTER → 2020-07-21 14:55 | Outpatient (CLI) | payer MEDICARE, OTHER, SELFPAY ==
[2020-07-21 17:40] LABS: Absolute Neutrophil Count 5.9 X10^3/uL (2.0-7.7); Basophil# 0.06 X10^3/uL; Basophil% 0.6 % (0-1); Eosinophil# 0.22 X10^3/uL; Eosinophils% 2.3 % (0-5); Hemoglobin 15.4 g/dL (12.0-15.0); Lymphocyte % 27.7 % (19-41); Mean Corp Hgb Conc 33.5 g/dL (32-36); Mean Corpuscular Hgb 31.2 pg (27.0-32.0); Mean Corpuscular Volume 93.3 fL (81-99); Mean Platelet Vol. 12.6 fl (6.2-12.0); Monocyte# 0.85 X10^3/uL; Monocyte% 8.7 % (0-10); NRBC Flagged by Analyzer 0 % (0-5); Neutrophil # 5.88 X10^3/uL (2.7-7.7); Neutrophil % 60.3 % (47-70); Platelet Count 157 K/mm3 (150-450); RBC Distribution Width CV 12.2 % (11.6-14.6); RBC Distribution Width SD 42.2 fl (35.1-43.9); Red Blood Count 4.93 M/mm3 (4.2-5.4); White Blood Count 9.8 K/mm3 (4.4-11.0)
[2020-07-21 17:45] LABS: Erythrocyte Sedimentation Rate 6 mm/hr (0-30)
[2020-07-21 17:54] LABS: Uric Acid 5.2 mg/dL (2.6-6.0)
== END ==
PROVIDERS: PCP Family Medicine; Referring Provider Family Medicine; Visit Provider Nurse Practitioner Family
DX: M25.571 Pain in right ankle and joints of right foot (principal)
CPT/HCPCS: 36415; 84550; 85025; 85652; 86140

== ENCOUNTER → 2020-12-22 09:36 | Outpatient (CLI) | payer MEDICARE, OTHER, SELFPAY ==
[2020-12-22 11:07] LABS: Vitamin D,25 Hydroxy 68.9 ng/mL
[2020-12-22 11:14] LABS: ALB/GLOB Ratio 1.2 RATIO (0.9-2.4); AST(SGOT) 55 U/L (15-37); Alanine Aminotransfer ALT/SGPT 67 U/L (13-56); Albumin, Serum 3.8 g/dL (3.2-5.0); Alkaline Phosphatase 95 U/L (45-117); Anion Gap 8 (5-15); BUN 14 mg/dL (7-18); BUN/Creat Ratio 17.9 RATIO (10-20); CRP 6.83 mg/L (0.0-3.0); Calcium,Total 9.4 mg/dL (8.5-10.1); Chloride 103 mmol/L (98-107); Creatinine, Serum 0.78 mg/dL (0.55-1.02); EST Glomerular Filtration Rate 77 mL/min (>60); Est Glom Filt Rate - Afr Amer 93 mL/min (>60); Globulin 3.3 g/dL (2.2-4.2); Glucose 183 mg/dL (74-106); Potassium 4.1 mmol/L (3.5-5.1); Protein, Total 7.1 g/dL (6.4-8.2); Sodium Level 137 mmol/L (136-145)
[2020-12-23 14:15] LABS: T4 Free Direct 1.28 ng/dL (0.76-1.46)
== END ==
PROVIDERS: PCP Family Medicine; Referring Provider Family Medicine; Visit Provider Family Medicine
DX: R79.82 Elevated C-reactive protein (CRP) (principal); E11.65 Type 2 diabetes mellitus with hyperglycemia; E03.9 Hypothyroidism, unspecified; E55.9 Vitamin D deficiency, unspecified
CPT/HCPCS: 36415; 80053; 82306; 84439; 84443; 86140

== ENCOUNTER → 2021-03-20 08:27 | Outpatient (CLI) | payer MEDICARE, OTHER, SELFPAY ==
[2021-03-20 10:31] LABS: T4 Free Direct 1.35 ng/dL (0.76-1.46)
== END ==
PROVIDERS: PCP Family Medicine; Visit Provider Family Medicine
DX: E03.9 Hypothyroidism, unspecified (principal)
CPT/HCPCS: 36415; 84439; 84443

== ENCOUNTER 2021-10-11 08:16 | Outpatient (CLI) | payer MEDICARE, OTHER, SELFPAY ==
[2021-10-11 10:45] LABS: AST(SGOT) 43 U/L (15-37); Alanine Aminotransfer ALT/SGPT 61 U/L (13-56); Albumin, Serum 3.4 g/dL (3.2-5.0); Alkaline Phosphatase 97 U/L (45-117); Anion Gap 8 (5-15); BUN 11 mg/dL (7-18); BUN/Creat Ratio 16.2 RATIO (10-20); CRP 7.06 mg/L (0.0-3.0); Calcium,Total 9.5 mg/dL (8.5-10.1); Chloride 105 mmol/L (98-107); Cholesterol 180 mg/dL (200); Creatinine, Serum 0.68 mg/dL (0.55-1.02); EST Glomerular Filtration Rate 91 mL/min (>60); Est Glom Filt Rate - Afr Amer 110 mL/min (>60); Globulin 3.4 g/dL (2.2-4.2); Glucose 166 mg/dL (74-106); High Density Lipoprotein 48 mg/dL; Potassium 4.1 mmol/L (3.5-5.1); Protein, Total 6.8 g/dL (6.4-8.2); Sodium Level 141 mmol/L (136-145); Triglycerides 200 mg/dL; Very Low Density Lipoprotein 40 mg/dL (5-40)
[2021-10-11 10:46] LABS: Vitamin D,25 Hydroxy 80.6 ng/mL
== END 2021-10-11 23:59 | disposition short-term general hospital (02) ==
LOC: MFPLAB 08:22
PROVIDERS: PCP Family Medicine; Referring Provider Family Medicine; Visit Provider Family Medicine
DX: R79.82 Elevated C-reactive protein (CRP) (principal); E11.65 Type 2 diabetes mellitus with hyperglycemia; E55.9 Vitamin D deficiency, unspecified
CPT/HCPCS: 36415; 80053; 80061; 82306; 86140; 86769

== ENCOUNTER → 2022-04-05 | Outpatient (CLI) | payer MEDICARE, OTHER, SELFPAY ==
[2022-04-05 13:09] LABS: Vitamin D,25 Hydroxy 88.6 ng/mL
[2022-04-05 13:23] LABS: ALB/GLOB Ratio 1.2 RATIO (0.9-2.4); AST(SGOT) 39 U/L (15-37); Alanine Aminotransfer ALT/SGPT 46 U/L (13-56); Albumin, Serum 3.5 g/dL (3.2-5.0); Alkaline Phosphatase 80 U/L (45-117); Anion Gap 6 (5-15); BUN 12 mg/dL (7-18); Calcium,Total 9.5 mg/dL (8.5-10.1); Chloride 108 mmol/L (98-107); EST Glomerular Filtration Rate 87 mL/min (>60); Est Glom Filt Rate - Afr Amer 105 mL/min (>60); Glucose 166 mg/dL (74-106); Protein, Total 6.5 g/dL (6.4-8.2); Sodium Level 140 mmol/L (136-145); Thyroid Stim Hormone (TSH) 1.78 uIU/mL (0.358-3.74)
== END | disposition home or self-care (01) ==
LOC: MFPLAB 10:00
PROVIDERS: PCP Family Medicine; Visit Provider Family Medicine
DX: E11.65 Type 2 diabetes mellitus with hyperglycemia (principal); E03.9 Hypothyroidism, unspecified; E55.9 Vitamin D deficiency, unspecified
CPT/HCPCS: 36415; 80053; 82306; 84443

== ENCOUNTER → 2022-09-27 | Outpatient (CLI) | payer MEDICARE, OTHER, SELFPAY ==
[2022-09-27 10:35] LABS: Vitamin B12 531 pg/mL (211-911); Vitamin D,25 Hydroxy 83.5 ng/mL
[2022-09-27 10:47] LABS: ALB/GLOB Ratio 1.3 RATIO (0.9-2.4); AST(SGOT) 39 U/L (15-37); Alanine Aminotransfer ALT/SGPT 47 U/L (13-56); Albumin, Serum 3.7 g/dL (3.2-5.0); Alkaline Phosphatase 77 U/L (45-117); Anion Gap 4 (5-15); BUN 9 mg/dL (7-18); BUN/Creat Ratio 13.1 RATIO (10-20); Calcium,Total 9.4 mg/dL (8.5-10.1); Chloride 106 mmol/L (98-107); Cholesterol 194 mg/dL (200); Creatinine, Serum 0.68 mg/dL (0.55-1.02); EST Glomerular Filtration Rate 90 mL/min (>60); Est Glom Filt Rate - Afr Amer 108 mL/min (>60); Globulin 2.9 g/dL (2.2-4.2); Glucose 152 mg/dL (74-106); High Density Lipoprotein 53 mg/dL; Potassium 4.4 mmol/L (3.5-5.1); Protein, Total 6.6 g/dL (6.4-8.2); Sodium Level 139 mmol/L (136-145); Thyroid Stim Hormone (TSH) 2.29 uIU/mL (0.358-3.74); Triglycerides 181 mg/dL; Very Low Density Lipoprotein 36 mg/dL (5-40)
== END | disposition home or self-care (01) ==
LOC: MFPLAB 08:31
PROVIDERS: PCP Family Medicine; Referring Provider Family Medicine; Visit Provider Family Medicine
DX: E11.69 Type 2 diabetes mellitus with other specified complication (principal); E55.9 Vitamin D deficiency, unspecified
CPT/HCPCS: 36415; 80053; 80061; 82306; 82607; 84443

== ENCOUNTER → 2022-12-14 | Outpatient (CLI) | payer MEDICARE, OTHER, SELFPAY | END | disposition home or self-care (01) | LOC: LABSPEC 15:07 | PROVIDERS: PCP Family Medicine; Visit Provider Nurse Practitioner Family | DX: R31.9 Hematuria, unspecified (principal) | CPT/HCPCS: 87086; 87088 ==

== ENCOUNTER → 2023-01-02 | Outpatient (CLI) | payer MEDICARE, OTHER, SELFPAY ==
[2023-01-02 10:24] LABS: Mucous, Urine 0 SEEN /hpf (<or=2+); Squamous Epithelial Cells - UA 0 SEEN /hpf (5-10)
[2023-01-02 11:01] LABS: Color, Urine Yellow (Yellow); Glucose, Dipstick Normal (Normal); Ketone-Dipstick Negative (Negative); Leukocyte Esterase-Dipstick 25 /ul (Negative); Nitrite-Dipstick Negative (Negative); Occult Blood-Urine 250 /ul (Negative); Protein-Dipstick 100 mg/dl (Negative); Urine Bilirubin Dipstick Negative (Negative); Urine Clarity Cloudy (Clear); Urine Urobilinogen 1 mg/dl (Normal)
[2023-01-02 11:20] LABS: Bacteria 1+ /hpf (None Seen); Red Blood Cells-Urine > 100 SEEN /hpf (0-5); White Blood Cells 0-5 SEEN /hpf (0-5)
== END | disposition home or self-care (01) ==
LOC: LABSPEC 10:18
PROVIDERS: PCP Family Medicine; Visit Provider Family Medicine
DX: E11.9 Type 2 diabetes mellitus without complications (principal)
CPT/HCPCS: 81001; 87086; 87088

== ENCOUNTER → 2023-01-07 | Outpatient (CLI) | payer MEDICARE, OTHER, SELFPAY ==
--- NOTE | 2023-01-07 13:42 | US_ITS ---
ACR Level 3 findings have been noted. An addendum which confirms receipt of the report will follow. INDICATION: hematuria EXAMINATION: Ultrasound US Kidney(s) complete (eg, kidneys and bladder) TECHNIQUE: Gibbs scale and color doppler images were obtained of the kidneys. COMPARISON: None. FINDINGS: RIGHT KIDNEY: Length: 12.2 cm Parenchyma: Unremarkable. Hydronephrosis: Moderate. Hydronephrosis persists on postvoid images. Dilated proximal ureter. Echogenic focus visualized in the proximal right ureter on postvoid images, 1.2 cm probable calculus. LEFT KIDNEY: Length: 11.7 cm Parenchyma: Unremarkable. Hydronephrosis: None. URINARY BLADDER: Moderately distended. Bladder volume 346 mL. US/Kidney and Bladder IMPRESSION: Moderate right hydroureteronephrosis with probable calculus visualized in the proximal right ureter. Electronically Signed: Dinora Mott MD at 7:23 EDT ,
== END | disposition home or self-care (01) ==
LOC: US 13:41
PROVIDERS: PCP Family Medicine; Referring Provider Family Medicine; Visit Provider Family Medicine
DX: R31.9 Hematuria, unspecified (principal)
CPT/HCPCS: 76770

== ENCOUNTER 2023-01-12 09:25 | Emergency (ER) | payer MEDICARE, OTHER, SELFPAY ==
[2023-01-12 09:25] VITALS: BP 177/81; PULSE 66; RESP 18; TEMP 36.3; O2SAT 97; BMI 33.8
--- NOTE | 2023-01-12 09:48 | CT_ITS ---
EXAM: CT ABDOMEN AND PELVIS WITHOUT INTRAVENOUS CONTRAST CLINICAL INDICATION: Right hydronephrosis suspiciously due to obstructing calculus in the right proximal ureter in ultrasound. TECHNIQUE: Helically acquired images were obtained of the abdomen and pelvis without intravenous contrast. This CT exam was performed using one or more of the following dose reduction techniques: automated exposure control, adjustment of the mA and/or kV according to patient size, and/or use of iterative reconstruction technique. This report was created using [employer] report generation technology. RADIATION DOSE: CTDIvol = 13.28 mGy, DLP = 690.20 mGy-cm COMPARISON: Right upper quadrant ultrasound 01/07/2023. FINDINGS: LOWER THORAX: Unremarkable. Lung bases are clear. No cardiomegaly. No significant pericardial effusion. ABDOMEN: LIVER: Mild irregularity in the anterior surface of the left hepatic lobe more than the right hepatic lobe is worrisome for early cirrhosis.. The liver measures 18 cm long. GALLBLADDER AND BILE DUCTS: Unremarkable. No calcified gallstones. No gallbladder distention or wall edema. No intra- or extrahepatic biliary ductal dilation. PANCREAS: Unremarkable. No focal cystic mass. SPLEEN: Unremarkable. Normal size without focal cystic or solid mass. ADRENALS: Unremarkable. No nodules. KIDNEYS AND URETERS: Moderate right hydronephrosis secondary to 1.3 x 0.7 cm obstructing stone in the mid ureter. This also accounts for the moderate right hydroureter proximal to the obstructing calculus. Normal left kidney and no left hydronephrosis. Normal renal size and position. STOMACH AND BOWEL: Unremarkable. No stomach or bowel distention. No focal inflammatory change. PELVIS: APPENDIX: The appendix is not visualized but there are no secondary signs of acute appendicitis. BLADDER: Unremarkable. REPRODUCTIVE: Unremarkable as visualized. No mass. ABDOMEN and PELVIS: INTRAPERITONEAL SPACE: Unremarkable. No ascites or other fluid collection. No free air. BONES/JOINTS: Unremarkable. No suspicious lytic or blastic abnormality. SOFT TISSUES: Unremarkable. No discrete abdominal or pelvic wall hernia. VASCULATURE: Unremarkable. Abdominal aorta is non-dilated. LYMPH NODES: Unremarkable. No enlarged lymph nodes. CT/Abdomen/Pelvis without Cont IMPRESSION: 1. Moderate right hydronephrosis secondary to large 1.3 x 0.7 cm obstructing calculus in the right mid ureter and moderate right hydroureter proximal to the obstructing stone. 2. Mild nodularity in the contour of the liver surface is worrisome for early cirrhosis. Electronically Signed: Tim Samayoa MD at 10:36 EDT ,
--- NOTE | 2023-01-12 09:49 | ED.VIS.FEGU ---
HPI HPI - Female History of Present Illness Chief Complaint: Complaint Informant: patient and family Narrative Narrative: Presenting increasing right flank pain since last evening with nausea and vomiting. Took 2 Tylenols this morning with improving symptoms. No dysuria or frequency. Has been having intermittent hematuria for past few weeks. Follow-up with her PCP. Had trial of antibiotics. Has referral to Dr. Maxwell in the next 2 weeks. No tobacco history. Intermittent back pains for the past few weeks. More intense overnight. No history of kidney stones. Had an outpatient ultrasound 5 days ago. Does not know the results. History of diabetes. No history of kidney injury. Prior similar symptoms: No PFSH PFSH Medical History Anal stenosis Arthritis Blood in stool Diabetes Diarrhea Hemorrhoids Rectal bleeding Suspected sleep apnea Thyroid disease Home Medications aspirin 81 mg tablet,delayed release (Adult Low Dose Aspirin) 81 mg PO DAILY 03/03/20 [History Last Taken 03/08/20] canagliflozin 300 mg tablet 300 mg PO DAILY diabetes 03/03/20 [History Last Taken Unknown] cholecalciferol (vitamin D3) 1,250 mcg (50,000 unit) capsule 50,000 unit PO QWEEK 03/03/20 [History Last Taken Unknown] glimepiride 4 mg tablet 4 mg PO BID 03/03/20 [History Last Taken Unknown] levothyroxine 100 mcg tablet 100 mcg PO DAILY 03/03/20 [History Last Taken Unknown] metformin 1,000 mg tablet 1,000 mg PO BID diabetes 03/03/20 [History Last Taken Unknown] Allergy/AdvReac Type Severity Reaction Status Date / Time atorvastatin Allergy Unknown Unknown Verified 01/12/23 09:27 Sulfa (Sulfonamide Allergy Unknown Unknown Verified 01/12/23 09:27 Antibiotics) Family History Mother Arthritis Heart disease Diabetes Hypertension High cholesterol Thyroid disorder Father Bone cancer Diabetes Hypertension High cholesterol Cancer skin cancer Sister Thyroid disorder Daughter Lupus Surgical History Hx of cholecystectomy Hx of colonoscopy Social History Smoking Status: Former smoker alcohol intake: never substance use type: does not use caffeine: Yes what type of physical activity do you participate in: walking frequency: 3-4 times per week seatbelt use: always ROS ROS ED Constitutional Constitutional ED: Denies chills, fever(s) or sweats Eyes Eyes: Denies change in vision ENT ENT ED: Denies dysphagia or sore throat Cardiovascular Cardiovascular: Denies chest pain, leg edema, palpitations or racing heartbeat Respiratory/Chest Respiratory/Chest: Denies cough, dyspnea or dyspnea on exertion Gastrointestinal Gastrointestinal: Reports vomiting; Denies abdominal pain, diarrhea or nausea Genitourinary Genitourinary ED: Denies dysuria, hematuria or urinary frequency Musculoskeletal Musculoskeletal: Reports back pain; Denies extremity pain or neck pain Integumentary Denies rash or wounds Neurologic Neurologic: Denies headache(s), paresthesias or weakness EXAM Physical Exam Const Vital Signs: 01/12/23 09:25 01/12/23 12:41 Temperature 97.4 F L Temperature Source Temporal Pulse Rate 66 64 Respiratory Rate 18 16 Blood Pressure 177/81 H 168/72 H Blood Pressure Mean 113 104 Pulse Ox 97 98 Oxygen Delivery Method Room Air Positive well nourished and well developed General Appearance ED: well developed and NAD HEENT Reports moist mucous membranes normocephalic and atraumatic Eyes PERRL, EOMs intact bilaterally and conjunctivae normal General Eye ED: Yes normal appearance of both eyes Neck no lymphadenopathy and supple General: Negative for tenderness Chest Wall Chest: Negative for tenderness Resp normal respiratory effort and normal air movement Effort and Inspection: symmetric chest movement; Negative for respiratory distress Cardio regular rate, regular rhythm and no murmurs Peripheral Pulses: pulses 2+ throughout GI normal to inspection, nondistended, normoactive bowel sounds and non-tender Palpation: Negative for guarding or rebound tenderness present Back/Spine no CVA tenderness and no thoracic nor lumbar tenderness Back/Spine Narrative: No rash. Extremity normal to inspection General Extremety ED: Negative for edema or tenderness General Extremity: Negative for edema Neuro oriented x3 and no sensory deficits noted Sensorium / Orientation: awake and alert Skin no rashes or lesions noted and no wounds MDM MDM MDM Narrative Medical decision making narrative: Interventions / MDM: Differential diagnosis: Kidney stone, hematuria, UTI Diagnosis considered but do not suspect: N/A My EKG interpretation: N/A Imaging independently reviewed and interpreted by myself: CT scan abdomen pelvis: Proximal ureteral stone with hydronephrosis also read by radiology noting 1.3 m External documents reviewed: Ultrasound results from 5 days ago right hydro suspect 1.2 cm proximal stone. Test considered but not ordered:N/A ED course: Patient was comfortable on exam with noted ultrasound results concerns for obstructive kidney stone with colic symptoms worsening since yesterday. Work-up initiated started on fluids. Pain increased when she went to the restroom she given Toradol and Zofran which she had nausea. Additional morphine was required. Lab creatinine 1.18 up from 0.66 months ago meeting MARCIE criteria. White count 9 1. Urine leukocytes,1+ bacteria and hematuria. Urine culture sent she is covered Rocephin. CT scan confirms obstructive kidney stone up to 1.3 cm. There is no current urologist available for discussed transfer. She did not eat today she will be kept NPO. I discussed with [facility] spoke with hospitalist Dr. Calderon discussed patient's history and findings along with no specialist coverage. She is acccepted to their facility. Patient and family updated. Re-evaluation: stable Disposition discussed with patient/family/significant other: Patient and daughter Case discussed with consulting clinician: N/A Lab Data Attestation: I reviewed the patient's lab results. Labs: Laboratory Results - last 24 hr 01/12/23 01/12/23 01/12/23 09:53 09:53 10:05 WBC 9.1 RBC 4.59 Hgb 15.0 Hct 41.7 MCV 90.8 MCH 32.7 H MCHC 36.0 RDW Std Deviation 40.1 RDW Coeff of Deni 12.2 Plt Count 133 L MPV 12.4 H Immature Gran % (Auto) 0.400 Neut % (Auto) 78.0 H Lymph % (Auto) 15.0 L [place] % (Auto) 6.0 Eos % (Auto) 0.2 Baso % (Auto) 0.4 Absolute Neuts (auto) 7.1 Absolute Lymphs (auto) 1.37 Nucleated RBC % 0 Sodium 138 Potassium 4.6 Chloride 104 Carbon Dioxide 25.0 Anion Gap 9 BUN 19 H Creatinine 1.18 H Estim Creat Clear Calc 34.08 Est GFR (MDRD) Af Amer 58 L Est GFR (MDRD) Non-Af 48 L BUN/Creatinine Ratio 16.1 Glucose 272 H Calcium 10.1 Urine Color Yellow Urine Clarity Clear Urine pH 5.0 Ur Specific [place] 1.025 Urine Protein 30 H Urine Glucose (UA) 1000 H Urine Ketones 50 H Urine Occult Blood 250 H Urine Nitrite Negative Urine Bilirubin Negative Urine Urobilinogen 1 H Ur Leukocyte Esterase 25 H Urine RBC > 100 SEEN Urine WBC 0-5 SEEN Ur Squamous Epith Cells 5-10 SEEN Urine Bacteria 1+ Urine Mucus 0 SEEN Radiography Diagnostic Testing: Clinical Impression(s) from Imaging Studies Abdomen/Pelvis CT 01/12/23 09:48 IMPRESSION: 1. Moderate right hydronephrosis secondary to large 1.3 x 0.7 cm obstructing calculus in the right mid ureter and moderate right hydroureter proximal to the obstructing stone. 2. Mild nodularity in the contour of the liver surface is worrisome for early cirrhosis. Electronically Signed: Tim Samayoa MD at 10:36 EDT , Discharge Plan Triage Chief Complaint: Complaint ED Provider: Logan Richardson Dx/Rx/DC Orders Clinical Impression: Hydronephrosis with renal and ureteral calculous obstruction, AMRCIE (acute kidney injury), Acute UTI, Hematuria, Right flank pain Prescriptions: No Action glimepiride 4 mg tablet 4 mg PO BID Label Comments: TAKE 1 TABLET BY MOUTH EVERY MORNING canagliflozin 300 mg tablet 300 mg PO DAILY cholecalciferol (vitamin D3) 1,250 mcg (50,000 unit) capsule 50,000 unit PO QWEEK Label Comments: TAKE ONE CAPSULE BY MOUTH ONCE WEEKLY metformin 1,000 mg tablet 1,000 mg PO BID levothyroxine 100 mcg tablet 100 mcg PO DAILY aspirin [Adult Low Dose Aspirin] 81 mg tablet,delayed release (DR/EC) 81 mg PO DAILY Label Comments: follow instructions about stopping Primary Care Provider: Maikel Gore Referrals: Maikel Gore MD [Primary Care Provider] - Disposition Disposition: DC/Tx to Another Type of HCF Discharge Location: [facility] Discharge Date/Time: 01/12/23 13:06
[2023-01-12 10:02] LABS: Absolute Lymphocyte Count 1.37 X10^3/uL (0.83-4.51); Absolute Neutrophil Count 7.1 X10^3/uL (2.0-7.7); Basophil# 0.04 X10^3/uL; Basophil% 0.4 % (0-1); Eosinophil# 0.02 X10^3/uL; Eosinophils% 0.2 % (0-5); Hematocrit 41.7 % (37-47); Lymphocyte # 1.37 X10^3/ul (0.83-4.51); Mean Corpuscular Hgb 32.7 pg (27.0-32.0); Mean Corpuscular Volume 90.8 fL (81-99); Mean Platelet Vol. 12.4 fl (6.2-12.0); Monocyte# 0.55 X10^3/uL; NRBC Flagged by Analyzer 0 % (0-5); Neutrophil # 7.11 X10^3/uL (2.7-7.7); Platelet Count 133 K/mm3 (150-450); RBC Distribution Width CV 12.2 % (11.6-14.6); RBC Distribution Width SD 40.1 fl (35.1-43.9); Red Blood Count 4.59 M/mm3 (4.2-5.4); White Blood Count 9.1 K/mm3 (4.4-11.0)
[2023-01-12] MEDS: 0.9% Normal Saline 1,000 ML 250 ML IV (10:05)
[2023-01-12 10:09] LABS: Mucous, Urine 0 SEEN /hpf (<or=2+)
[2023-01-12 10:12] LABS: Color, Urine Yellow (Yellow); Glucose, Dipstick 1000 mg/dl (Normal); Ketone-Dipstick 50 mg/dl (Negative); Leukocyte Esterase-Dipstick 25 /ul (Negative); Nitrite-Dipstick Negative (Negative); Occult Blood-Urine 250 /ul (Negative); Protein-Dipstick 30 mg/dl (Negative); Specific Gravity, Urine 1.025 (1.002-1.030); Urine Bilirubin Dipstick Negative (Negative); Urine Clarity Clear (Clear); Urine Urobilinogen 1 mg/dl (Normal)
[2023-01-12] MEDS: Ketorolac 15 MG/ML Vial IV (10:20)
[2023-01-12] MEDS: Ondansetron 4 MG/2 ML Vial IV (10:23)
[2023-01-12 10:25] LABS: Bacteria 1+ /hpf (None Seen); Red Blood Cells-Urine > 100 SEEN /hpf (0-5); Squamous Epithelial Cells - UA 5-10 SEEN /hpf (5-10); White Blood Cells 0-5 SEEN /hpf (0-5)
[2023-01-12 10:26] LABS: Anion Gap 9 (5-15); BUN 19 mg/dL (7-18); BUN/Creat Ratio 16.1 RATIO (10-20); Calcium,Total 10.1 mg/dL (8.5-10.1); Chloride 104 mmol/L (98-107); Creatinine, Serum 1.18 mg/dL (0.55-1.02); EST Glomerular Filtration Rate 48 mL/min (>60); Est Glom Filt Rate - Afr Amer 58 mL/min (>60); Estimated Creatinine Clearance 34.08 ml/min; Glucose 272 mg/dL (74-106); Potassium 4.6 mmol/L (3.5-5.1); Sodium Level 138 mmol/L (136-145)
[2023-01-12] MEDS: Morphine 4 MG/ML Syringe IV (10:47)
[2023-01-12] MEDS: Ceftriaxone 1 GM/50 ML BAG IV (11:08)
--- NOTE | 2023-01-12 11:10 | NURSING ---
CALLED [facility] TRANSFER LINE FOR [place] [place]. TALKED TO LAI FAXED FACESHEET
--- NOTE | 2023-01-12 11:39 | NURSING ---
DR NANCE, [facility], FOR DR JUAREZ
[2023-01-12 12:41] VITALS: BP 168/72; PULSE 64; RESP 16; O2SAT 98
== END 2023-01-12 13:06 | disposition other institution (70) ==
PROVIDERS: Emergency Provider Emergency Medicine; PCP Family Medicine; Visit Provider Emergency Medicine
DX: N13.6 Pyonephrosis (principal); N17.9 Acute kidney failure, unspecified; E11.9 Type 2 diabetes mellitus without complications; R31.9 Hematuria, unspecified; R10.9 Unspecified abdominal pain; Z79.82 Long term (current) use of aspirin; Z79.84 Long term (current) use of oral hypoglycemic drugs; Z79.899 Other long term (current) drug therapy; Z87.891 Personal history of nicotine dependence
CPT/HCPCS: 74176; 80048; 81001; 85025; 96365; 96375; 99284; J7030; A4216; J2405

== ENCOUNTER → 2023-03-19 | Outpatient (CLI) | payer MEDICARE, OTHER, SELFPAY ==
--- NOTE | 2023-03-19 08:26 | BD_ITS ---
STUDY: DUAL ENERGY X-RAY ABSORPTIOMETRY / DXA REASON FOR EXAM: Female, 72 years old. 627.8Menopausal postmenopausalBONE DENSITY REASON FOR EXAM TECHNIQUE: Bone Mineral Density (BMD) measurements of lumbar spine and bilateral hips were obtained. COMPARISON: Comparison is made with prior study dated January 31, 2011. FINDINGS: Lumbar Spine (L1-L4): g/cm2 (1.075) / T-score (0.3) / Z-score (2.5) Findings are suggestive of normal bone density with a low fracture risk. Left Femur Total: g/cm2 (0.965) / T-score (0.2) / Z-score (1.8) Left Femoral Neck: g/cm2 (0.832) / T-score (-0.2) / Z-score (1.8) Right Femur Total: g/cm2 (0.980) / T-score (0.3) / Z-score (2.0) Right Femoral Neck: g/cm2 (0.834) / T-score (-0.1) / Z-score (1.8) The T-Scores on the most recent prior examination were: Lumbar Spine (L1-L4): There has been worsening of bone density since the previous examination. Left Femur Total: which represents a worsening of 7.2%. Right Femur Total: which represents a worsening of 10.3%. BD/Dexa Bone Density Study IMPRESSION: The patient is considered normal as outlined below according to World Gael Organization (WHO) criteria with a low fracture risk. Reference Information: The T-score is the number of standard deviations above or below the standard which is normal for young adults at their peak bone mineral density. The World Health Organization (WHO) interprets the T-scores as follows: Above -1 Normal bone density Between -1 and -2.5 Osteopenia Equal to / or below -2.5 Osteoporosis As a practical clinical guideline, osteopenia may be graded as follows: Mild -1 through -1.5 Moderate -1.6 through -2.0 Severe -2.1 through -2.4 The Z-score is the number of standard deviations above or below age-matched controls. A Z-score of less than -1.5 would be considered abnormal. References: 1. NIH Osteoporosis and Related Bone Diseases www osteo.org 2. International Society for Clinical Densitometry www iscd.org 3. National Osteoporosis Foundation www nof.org Electronically Signed: Wes Jeffrey MD at 8:18 EDT ,
== END | disposition home or self-care (01) ==
LOC: OPBD 08:12
PROVIDERS: PCP Family Medicine; Visit Provider Family Medicine
DX: Z78.0 Asymptomatic menopausal state (principal)
CPT/HCPCS: 77080

== ENCOUNTER 2023-05-13 09:52 | Emergency (ER) | payer MEDICARE, OTHER, SELFPAY ==
[2023-05-13 09:53] VITALS: BP 170/100; PULSE 79; RESP 14; TEMP 37.1; O2SAT 100; BMI 33.0
--- NOTE | 2023-05-13 10:01 | EX.ED.UPPERE ---
HPI History of Present Illness Chief Complaint: Upper Extremity Injury Informant: patient Occured/Mechanism Comment: There is no history of trauma. Patient recently on levofloxacin. Onset/Context/Timing Onset: Hours Context: Sudden Onset Timing: Continuous Quality of Pain: Dull Location: Right shoulder region Current Severity: Mild Maximum Severity: Severe Worsened by: Any type of movement Relieved by: Nothing Associated Symptoms Associated Symptoms: Positive for Loss of Funtion (Due to pain); Negative for Parasthesia or Weakness Narrative Narrative: Patient is a 72-year-old woman with history of type 2 diabetes, hypothyroidism who presents with atraumatic acute right shoulder pain. She states any type of movement causes her discomfort. She denies history of gout or pseudogout. She was recently on levofloxacin for urinary tract infection associated with kidney stone. She required stenting. Patient denies recent fevers, chills night sweats. Patient denies trauma. Patient denies paresthesia, anesthesia or motor weakness. Patient denies respiratory or cardiac symptoms. Patient denies prior joint pain. Prior similar symptoms: No Recent Illness/[facility] Medical History Anal stenosis Arthritis Blood in stool Diabetes Diarrhea Hemorrhoids Rectal bleeding Suspected sleep apnea Thyroid disease Home Medications aspirin 81 mg tablet,delayed release (Adult Low Dose Aspirin) 81 mg PO DAILY 03/03/20 [History Last Taken 03/08/20] canagliflozin 300 mg tablet 300 mg PO DAILY diabetes 03/03/20 [History Last Taken Unknown] cholecalciferol (vitamin D3) 1,250 mcg (50,000 unit) capsule 50,000 unit PO QWEEK 03/03/20 [History Last Taken Unknown] glimepiride 4 mg tablet 4 mg PO BID 03/03/20 [History Last Taken Unknown] levothyroxine 100 mcg tablet 100 mcg PO DAILY 03/03/20 [History Last Taken Unknown] metformin 1,000 mg tablet 1,000 mg PO BID diabetes 03/03/20 [History Last Taken Unknown] oxycodone-acetaminophen 5 mg-325 mg tablet (Percocet) 1 tab PO Q8H PRN pain 3 days #10 tabs 05/13/23 [Rx Last Taken Unknown] Allergy/AdvReac Type Severity Reaction Status Date / Time canagliflozin [From Invokana] Allergy Mild YEAST Verified 05/13/23 09:55 INFECTION atorvastatin Allergy Unknown Unknown Verified 01/12/23 09:27 Sulfa (Sulfonamide Allergy Unknown Unknown Verified 01/12/23 09:27 Antibiotics) Family History Mother Arthritis Heart disease Diabetes Hypertension High cholesterol Thyroid disorder Father Bone cancer Diabetes Hypertension High cholesterol Cancer skin cancer Sister Thyroid disorder Daughter Lupus Surgical History Hx of cholecystectomy Hx of colonoscopy Social History Smoking Status: Former smoker alcohol intake: never substance use type: does not use caffeine: Yes what type of physical activity do you participate in: walking frequency: 3-4 times per week seatbelt use: always ROS ROS ED Constitutional Constitutional ED: Denies chills, fever(s), subjective, sweats or weight loss Eyes Eyes: Denies blurry vision or change in vision ENT ENT ED: Denies ear pain, rhinorrhea or sore throat Cardiovascular Cardiovascular: Denies chest pain, palpitations or racing heartbeat Respiratory/Chest Respiratory/Chest: Denies cough, dyspnea or dyspnea on exertion Gastrointestinal Gastrointestinal: Denies abdominal pain, nausea or vomiting Musculoskeletal Musculoskeletal: Denies back pain, myalgias or neck pain Integumentary Denies rash Neurologic Neurologic: Denies paresthesias or weakness Endocrine Endocrinology: Denies cold intolerance, heat intolerance, polydipsia or polyuria Hematologic/Lymphatic Hematologic/Lymphatic: Denies easy bruising EXAM Physical Exam Const Vital Signs: 05/13/23 09:53 Temperature 98.7 F Temperature Source Temporal Pulse Rate 79 Respiratory Rate 14 Blood Pressure 170/100 H Blood Pressure Mean 123 Pulse Ox 100 Oxygen Delivery Method Room Air Positive well nourished, well developed and obese Constitutional Narrative: Patient appears uncomfortable. She is holding her right upper extremity against her torso and internally rotated. General Appearance ED: well developed; Negative for NAD Nutritional Appearance: obese HEENT Reports moist mucous membranes normocephalic and atraumatic Eyes PERRL and EOMs intact bilaterally Neck full ROM and supple Chest Wall inspection of chest normal and palpation of chest normal Resp normal respiratory effort and clear to auscultation bilaterally Cardio regular rate, regular rhythm, S1 normal heart sound, S2 normal heart sound and no murmurs GI non-tender, non-distended and no masses Auscultation: normoactive bowel sounds Back/Spine no CVA tenderness Thoracic Spine / Upper Back: Negative for thoracic spinal tenderness Lumbar Spine / Lower Back: Negative for lumbar spinal tenderness Extremity normal to inspection; Negative for full ROM Extremity Narrative: Limited range of motion right shoulder due to pain. There is pain to palpation of the shoulder joint. There is no pain the patient over the clavicle or AC joint. Attempt at passive internal extra rotation or abduction causes significant discomfort. Axillary, median, radial and ulnar function intact. Unable to assess for drop test. There is no pain the patient over the lateral or medial epicondyle, electron process or radial head. There is no pain the patient over the distal radius ulna, carpal bones or metacarpal bones. Specifically there is no pain over the anatomical snuffbox. There is no pain the patient the phalanges. There is no swelling of the right shoulder compared to left. There is no obvious effusion. Neuro oriented x3, CN's II-XII intact bilaterally, moves all extremities, no focal motor deficits and no sensory deficits noted Sensorium / Orientation: alert Psych mental status grossly normal Skin General Skin Exam: Negative for petechiae Lesions: no lesions Rashes: no rashes Trauma: no lacerations or abrasions MDM MDM MDM Narrative Medical decision making narrative: Since patient was recently quinolones need to consider tendinitis. This may also represent crystal induced versus pyogenic arthritis. IV was established. Patient was medicated with IV morphine. X-ray the shoulder was obtained as well as CBC, comprehensive metabolic panel, ESR and CRP. Lab Data Attestation: I reviewed the patient's lab results. Lab results narrative: Basic metabolic panel is unremarkable. C-reactive protein is elevated. ESR is normal. Reviewing prior records it was noted that patient's ESR is also is normal and CRP is always elevated when tested. Radiography Chest X-Ray - ED: Read by ED Physician (Three-view x-ray of the right shoulder was obtained independently interpreted by me at 1035 as negative for acute process. There is significant arthritic changes. There is no widening of the joint. There is no into fracture, subluxation or dislocation.) Treatment and Re-Evaluation Narrative: Patient was reassessed at 1137. She is now able to flex and extend at the elbow. She has slight increased movement at the shoulder. This could represent a supraspinatus tendinitis since she was on a quinolone for urinary tract infection. This may also represent osteoarthritis. Since she still having significant pain we will refer to Dr. Kirill Driscoll. She was not placed on prednisone since she has type 2 diabetes on 3 different meds. Discharge Plan Triage Chief Complaint: Upper Extremity Injury ED Provider: Delonte Banks Dx/Rx/DC Orders Clinical Impression: Hx of type 2 diabetes mellitus, Acute pain of right shoulder, History of hypothyroidism Instructions: ED Shoulder Pain, Uncertain Cause Prescriptions: New oxycodone-acetaminophen [Percocet] 5-325 mg tablet 1 tab PO Q8H PRN (Reason: pain) 3 Days Qty: 10 0RF No Action glimepiride 4 mg tablet 4 mg PO BID Patient Comments: TAKE 1 TABLET BY MOUTH EVERY MORNING canagliflozin 300 mg tablet 300 mg PO DAILY cholecalciferol (vitamin D3) 1,250 mcg (50,000 unit) capsule 50,000 unit PO QWEEK Patient Comments: TAKE ONE CAPSULE BY MOUTH ONCE WEEKLY metformin 1,000 mg tablet 1,000 mg PO BID levothyroxine 100 mcg tablet 100 mcg PO DAILY aspirin [Adult Low Dose Aspirin] 81 mg tablet,delayed release (DR/EC) 81 mg PO DAILY Patient Comments: follow instructions about stopping Primary Care Provider: Maikel Gore Referrals: Maikel Gore MD [Primary Care Provider] - Kirill Driscoll MD [Med Staff - Active Staff] - 5-7 Days Disposition Disposition: Home, Self Care
[2023-05-13] MEDS: Ondansetron 4 MG/2 ML Vial IV (10:17)
[2023-05-13] MEDS: Morphine 4 MG/ML Syringe IV (10:18)
--- NOTE | 2023-05-13 10:25 | RAD_ITS ---
STUDY: X-RAY - RIGHT SHOULDER REASON FOR EXAM: Female, 72 years old. Injury/Pain TECHNIQUE: 4 view(s) of the shoulder. COMPARISON: None. 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 Cystic changes are seen in the subchondral region of the acromion. Normal acromioclavicular joint. Normal acromion. There is deformity of the humeral head most likely secondary to old injury. The soft tissue structures are unremarkable. Normal visualized pulmonary apex. RAD/Shoulder min 2 Views IMPRESSION: Degenerative changes. No acute abnormality is seen. Electronically Signed: Wes Jeffrey MD at 11:09 EDT ,
[2023-05-13 10:33] LABS: Anion Gap 5 (5-15); BUN 14 mg/dL (7-18); BUN/Creat Ratio 19.6 RATIO (10-20); Calcium,Total 9.2 mg/dL (8.5-10.1); Chloride 106 mmol/L (98-107); Creatinine, Serum 0.72 mg/dL (0.55-1.02); EST Glomerular Filtration Rate 85 mL/min (>60); Est Glom Filt Rate - Afr Amer 103 mL/min (>60); Estimated Creatinine Clearance 40.22 ml/min; Glucose 197 mg/dL (74-106); Potassium 3.9 mmol/L (3.5-5.1); Sodium Level 136 mmol/L (136-145)
[2023-05-13 10:38] LABS: Erythrocyte Sedimentation Rate 8 mm/hr (0-30)
[2023-05-13 10:42] LABS: Absolute Lymphocyte Count 1.95 X10^3/uL (0.83-4.51); Absolute Neutrophil Count 7.6 X10^3/uL (2.0-7.7); Basophil# 0.04 X10^3/uL; Basophil% 0.4 % (0-1); Eosinophil# 0.05 X10^3/uL; Eosinophils% 0.5 % (0-5); Hematocrit 38.6 % (37-47); Lymphocyte # 1.95 X10^3/ul (0.83-4.51); Lymphocyte % 18.7 % (19-41); Mean Corp Hgb Conc 36.3 g/dL (32-36); Mean Corpuscular Hgb 32.2 pg (27.0-32.0); Mean Corpuscular Volume 88.7 fL (81-99); Mean Platelet Vol. 12.7 fl (6.2-12.0); Monocyte# 0.77 X10^3/uL; Monocyte% 7.4 % (0-10); NRBC Flagged by Analyzer 0 % (0-5); Neutrophil # 7.58 X10^3/uL (2.7-7.7); Neutrophil % 72.7 % (47-70); Platelet Count 128 K/mm3 (150-450); RBC Distribution Width CV 12.3 % (11.6-14.6); RBC Distribution Width SD 40.2 fl (35.1-43.9); Red Blood Count 4.35 M/mm3 (4.2-5.4); White Blood Count 10.4 K/mm3 (4.4-11.0)
[2023-05-13] MEDS: Ketorolac 15 MG/ML Vial IV (10:59)
== END 2023-05-13 12:04 | disposition home or self-care (01) ==
PROVIDERS: Emergency Provider Emergency Medicine; PCP Family Medicine; Visit Provider Emergency Medicine
DX: M25.511 Pain in right shoulder (principal); E11.9 Type 2 diabetes mellitus without complications; E03.9 Hypothyroidism, unspecified; Z79.82 Long term (current) use of aspirin; Z79.84 Long term (current) use of oral hypoglycemic drugs; Z79.899 Other long term (current) drug therapy; Z87.891 Personal history of nicotine dependence
CPT/HCPCS: 73030; 80048; 85025; 85652; 86140; 96374; 96375; 99284; A4216; J2405

== ENCOUNTER → 2023-08-26 | Outpatient (CLI) | payer MEDICARE, OTHER, SELFPAY ==
[2023-08-26 11:07] LABS: Vitamin D,25 Hydroxy 105.6 ng/mL
[2023-08-26 11:22] LABS: ALB/GLOB Ratio 1.1 RATIO (0.9-2.4); AST(SGOT) 39 U/L (15-37); Alanine Aminotransfer ALT/SGPT 41 U/L (13-56); Albumin, Serum 3.7 g/dL (3.2-5.0); Alkaline Phosphatase 86 U/L (45-117); Anion Gap 8 (5-15); BUN 11 mg/dL (7-18); BUN/Creat Ratio 16.8 RATIO (10-20); CRP 8.29 mg/L (0.0-3.0); Calcium,Total 9.3 mg/dL (8.5-10.1); Chloride 107 mmol/L (98-107); Cholesterol 160 mg/dL (200); Creatinine, Serum 0.66 mg/dL (0.55-1.02); EST Glomerular Filtration Rate 94 mL/min (>60); Est Glom Filt Rate - Afr Amer 114 mL/min (>60); Globulin 3.4 g/dL (2.2-4.2); Glucose 86 mg/dL (74-106); High Density Lipoprotein 55 mg/dL; Potassium 3.9 mmol/L (3.5-5.1); Protein, Total 7.1 g/dL (6.4-8.2); Sodium Level 141 mmol/L (136-145); Thyroid Stim Hormone (TSH) 1.44 uIU/mL (0.358-3.74); Triglycerides 162 mg/dL; Very Low Density Lipoprotein 32 mg/dL (5-40)
== END | disposition home or self-care (01) ==
LOC: MFPLAB 08:40
PROVIDERS: PCP Family Medicine; Visit Provider Family Medicine
DX: R79.82 Elevated C-reactive protein (CRP) (principal); E55.9 Vitamin D deficiency, unspecified; E03.9 Hypothyroidism, unspecified
CPT/HCPCS: 36415; 80053; 80061; 82306; 84443; 86140

== ENCOUNTER → 2024-06-04 | Outpatient (CLI) | payer MEDICARE, OTHER, SELFPAY ==
[2024-06-04 10:43] LABS: ALB/GLOB Ratio 1.1 RATIO (0.9-2.4); AST(SGOT) 45 U/L (15-37); Alanine Aminotransfer ALT/SGPT 52 U/L (13-56); Albumin, Serum 3.6 g/dL (3.2-5.0); Alkaline Phosphatase 92 U/L (45-117); Anion Gap 7 (5-15); BUN 9 mg/dL (7-18); BUN/Creat Ratio 11.8 RATIO (10-20); Calcium,Total 9.5 mg/dL (8.5-10.1); Chloride 104 mmol/L (98-107); Creatinine, Serum 0.76 mg/dL (0.55-1.02); EST Glomerular Filtration Rate 79 mL/min (>60); Est Glom Filt Rate - Afr Amer 95 mL/min (>60); Globulin 3.4 g/dL (2.2-4.2); Glucose 112 mg/dL (74-106); Potassium 4.5 mmol/L (3.5-5.1); Sodium Level 138 mmol/L (136-145); Thyroid Stim Hormone (TSH) 0.928 uIU/mL (0.358-3.740)
== END | disposition home or self-care (01) ==
LOC: MFPLAB 09:03
PROVIDERS: PCP Family Medicine; Visit Provider Family Medicine
DX: E11.65 Type 2 diabetes mellitus with hyperglycemia (principal); E03.9 Hypothyroidism, unspecified
CPT/HCPCS: 36415; 80053; 84443

== ENCOUNTER → 2024-08-18 | Outpatient (CLI) | payer MEDICARE, OTHER, SELFPAY ==
[2024-08-18 12:25] LABS: Absolute Lymphocyte Count 2.27 X10^3/uL (0.83-4.51); Absolute Neutrophil Count 4.4 X10^3/uL (2.0-7.7); Basophil# 0.05 X10^3/uL; Basophil% 0.7 % (0-1); Eosinophil# 0.22 X10^3/uL; Eosinophils% 2.9 % (0-5); Hematocrit 42.1 % (37-47); Lymphocyte # 2.27 X10^3/ul (0.83-4.51); Lymphocyte % 30.2 % (19-41); Mean Corp Hgb Conc 33.3 g/dL (32-36); Mean Corpuscular Hgb 30.8 pg (27.0-32.0); Mean Corpuscular Volume 92.7 fL (81-99); Mean Platelet Vol. 12.5 fl (6.2-12.0); Monocyte# 0.57 X10^3/uL; Monocyte% 7.6 % (0-10); NRBC Flagged by Analyzer 0 % (0-5); Neutrophil # 4.38 X10^3/uL (2.7-7.7); Neutrophil % 58.2 % (47-70); Platelet Count 147 K/mm3 (150-450); RBC Distribution Width CV 12.6 % (11.6-14.6); RBC Distribution Width SD 42.7 fl (35.1-43.9); Red Blood Count 4.54 M/mm3 (4.2-5.4); White Blood Count 7.5 K/mm3 (4.4-11.0)
[2024-08-18 13:02] LABS: ALB/GLOB Ratio 1.1 RATIO (0.9-2.4); AST(SGOT) 44 U/L (15-37); Alanine Aminotransfer ALT/SGPT 51 U/L (13-56); Albumin, Serum 3.5 g/dL (3.2-5.0); Alkaline Phosphatase 96 U/L (45-117); Anion Gap 6 (5-15); BUN 9 mg/dL (7-18); BUN/Creat Ratio 14.3 RATIO (10-20); Calcium,Total 9.9 mg/dL (8.5-10.1); Chloride 108 mmol/L (98-107); Creatinine, Serum 0.63 mg/dL (0.55-1.02); EST Glomerular Filtration Rate 99 mL/min (>60); Est Glom Filt Rate - Afr Amer 119 mL/min (>60); Globulin 3.3 g/dL (2.2-4.2); Glucose 104 mg/dL (74-106); Potassium 4.2 mmol/L (3.5-5.1); Protein, Total 6.8 g/dL (6.4-8.2); Sodium Level 138 mmol/L (136-145)
== END | disposition home or self-care (01) ==
LOC: MFPLAB 10:43
PROVIDERS: PCP Family Medicine; Visit Provider Nurse Practitioner Family
DX: Z01.812 Encounter for preprocedural laboratory examination (principal)
CPT/HCPCS: 36415; 80053; 85025

== ENCOUNTER → 2025-04-06 | Outpatient (CLI) | payer MEDICARE, OTHER, SELFPAY ==
[2025-04-06 11:27] LABS: AST(SGOT) 43 U/L (<=31); Alanine Aminotransfer ALT/SGPT 36 U/L (<=34); Albumin, Serum 4.0 g/dL (3.4-4.8); Alkaline Phosphatase 109 U/L (35-104); Anion Gap 11 (5-15); BUN 9 mg/dL (4-19); BUN/Creat Ratio 14.3 RATIO (10-20); Calcium,Total 9.7 mg/dL (7.6-11.0); Carbon Dioxide 24.2 mmol/L (21.0-32.0); Chloride 104 mmol/L (98-108); Cholesterol 164 mg/dL (<=200); Globulin 2.8 g/dL (2.2-4.2); Glucose 119 mg/dL (70-99); Low Density Lipoprotein Calc. 79 mg/dL; Potassium 4.5 mmol/L (3.3-5.1); Triglycerides 164 mg/dL; Very Low Density Lipoprotein 33 mg/dL (5-40); Vitamin D,25 Hydroxy 58.7 ng/mL (30-100); cholesterol:hdl ratio screen 3.15
== END | disposition home or self-care (01) ==
LOC: MFPLAB 08:52
PROVIDERS: PCP Family Medicine; Referring Provider Family Medicine; Visit Provider Family Medicine
DX: E03.9 Hypothyroidism, unspecified (principal); E55.9 Vitamin D deficiency, unspecified
CPT/HCPCS: 36415; 80053; 80061; 82306; 84443

== ENCOUNTER → 2025-06-29 | Outpatient (CLI) | payer MEDICARE, OTHER, SELFPAY ==
[2025-06-29 10:50] LABS: Creatinine, Urine (random) 113.00 mg/dL (28.00-217.00); Microalbumin,Random Urine < 12.0 mg/L (<20 mg/L)
== END | disposition home or self-care (01) ==
LOC: LABSPEC 08:42
PROVIDERS: PCP Family Medicine; Visit Provider Family Medicine
DX: E11.65 Type 2 diabetes mellitus with hyperglycemia (principal)
CPT/HCPCS: 82043; 82570

== ENCOUNTER → 2025-09-21 | Outpatient (CLI) | payer MEDICARE, OTHER, SELFPAY | END | disposition home or self-care (01) | LOC: LABSPEC 14:47 | PROVIDERS: PCP Family Medicine; Visit Provider Family Medicine | DX: N39.0 Urinary tract infection, site not specified (principal) | CPT/HCPCS: 87077; 87086; 87088; 87186 ==